=== PATIENT | male | born 1995 | race Caucasian/White ===

== ENCOUNTER 2017-11-05 17:57 | Emergency (ER) | payer BC ==
[2017-11-05 18:25] VITALS: BP 131/79
--- NOTE | 2017-11-05 18:57 | UC ---
Abdominal Pain Male HPI - HPI Summary HPI Summary: The patient is a 22-year-old male with a two-week history of epigastric abdominal pain. Pain is constant. His current pain level is 3 out of 10. His pain goes to a 6 out of 10 soon after eating food. He does eat the pain radiates to the left side of his upper abdomen. He has nausea when he eats or even if he smells food. No vomiting. He denies any fever or chills. Denies any weight loss. Has had 1-3 episodes of diarrhea per day. He denies any blood in his diarrhea. He has had no surgeries on his abdomen. He states of both his father and grandfather have weak stomachs. He denies any UTI symptoms. - History of Current Complaint Chief Complaint: UCAbdominalPain Stated Complaint: ABDOMINAL PAIN Time Seen by Provider: 11/05/17 18:27 Hx Obtained From: Patient Onset/Duration: Gradual Onset, Lasting Weeks Timing: Constant Severity Initially: Mild Severity Currently: Mild Pain Intensity: 3 Pain Scale Used: 0-10 Numeric Location: Epigastric Radiates to: LLQ Character: Burning Aggravating Factor(s): Food Alleviating Factor(s): Nothing Associated Signs And Symptoms: Positive: Nausea, Diarrhea - Allergies/Home Medications Allergies/Adverse Reactions: Allergies Allergy/AdvReac Type Severity Reaction Status Date / Time No Known Allergies Allergy Verified 11/05/17 18:18 PMH/Surg Hx/FS Hx/Imm Hx Previously Healthy: Yes - Surgical History Surgical History: None - Family History Known Family History: Positive: Hypertension - Social History Alcohol Use: Occasionally Substance Use Type: None Smoking Status (MU): Never Smoked Tobacco - Immunization History Most Recent Tetanus Shot: UTD Review of Systems Constitutional: Negative Skin: Negative Eyes: Negative ENT: Negative Respiratory: Negative Cardiovascular: Negative Gastrointestinal: Abdominal Pain, Diarrhea, Nausea Genitourinary: Negative Motor: Negative Neurovascular: Negative Musculoskeletal: Negative Neurological: Negative Psychological: Negative Is Patient Immunocompromised?: No All Other Systems Reviewed And Are Negative: Yes Physical Exam Triage Information Reviewed: Yes Appearance: Well-Appearing, No Pain Distress, Well-Nourished Vital Signs: Initial Vital Signs Temp 97.9 F 11/05/17 18:18 Pulse 96 11/05/17 18:18 Resp 16 11/05/17 18:18 BP 131/79 11/05/17 18:18 Pulse Ox 100 11/05/17 18:18 Vital Signs Reviewed: Yes Eyes: Positive: Conjunctiva Clear ENT: Negative: Nasal congestion, Nasal drainage, Trismus, Muffled voice, Hoarse voice, Sinus tenderness Neck: Positive: Supple, Nontender Respiratory: Positive: Lungs clear, Normal breath sounds, No respiratory distress, No accessory muscle use Cardiovascular: Positive: RRR, No Murmur Abdomen Description: Positive: Nontender, No Organomegaly, Soft. Negative: CVA Tenderness (R), CVA Tenderness (L), Distended, Guarding, McBurney's Point Tenderness, Peritoneal Signs, Pulsatile Mass, Splenomegaly Bowel Sounds: Positive: Present Musculoskeletal: Positive: ROM Intact, No Edema Neurological: Positive: Alert Psychological Exam: Normal Skin Exam: Normal Abd Pain Male Course/Dx - Differential Dx/Clinical Impression Differential Diagnosis/HQI/PQRI: Peptic Ulcer Disease, Other - gastroenteritis Provider Diagnoses: abdominal pain of uncertain cause. diarrhea Discharge - Sign-Out/Discharge Documenting (check all that apply): Patient Departure - Discharge Plan Condition: Stable Disposition: HOME Prescriptions: Famotidine TAB* [Pepcid 20 MG TAB*] 20 mg PO DAILY #14 tab Ondansetron TAB* [Zofran Tab*] 4 mg PO Q6H PRN #10 tab PRN Reason: Nausea Patient Education Materials: Acute Diarrhea (ED) Referrals: Juhi Culp PA [Primary Care Provider] - Additional Instructions: Bring in stool for studies recheck for new or worsening symptoms see your provider next week for recheck - Billing Disposition and Condition Condition: STABLE Disposition: Home
== END 2017-11-05 19:12 | disposition home or self-care (01) ==
LOC: UCCORT 17:57
DX: R10.13 Epigastric pain (principal); R19.7 Diarrhea, unspecified
CPT/HCPCS: 81003; 99202; G0463